=== PATIENT | male | born 1945 | race Caucasian/White ===

== ENCOUNTER 2019-07-17 09:54 | Outpatient (CLI) | payer OTHER, SELFPAY ==
--- NOTE | ~2019-07-17 | XR_ITS ---
XR chest 2V 07/17/2019 10:16 Indication: Cough with hemoptysis Procedure: PA and lateral views of the chest Comparison: 09/12/2017 Findings: Bilateral airspace disease predominantly affecting the mid and lower lungs. Cardiomegaly. N o pleural effusion or pneumothorax. Impression: 1: Bilateral airspace disease which may represent pneumonia or edema. 2: Cardiomegaly. Reviewed, dictated and finalized at location A. Impression: 1: Bilateral airspace disease which may represent pneumonia or edema. 2: Cardiomegaly.
== END 2019-07-17 09:55 | disposition home or self-care (01) ==
PROVIDERS: PCP Family Medicine Adolescent Medicine; Visit Provider Physician Assistant
DX: R05 Cough (principal); R06.2 Wheezing; I51.7 Cardiomegaly; R91.8 Other nonspecific abnormal finding of lung field
CPT/HCPCS: 71046

== ENCOUNTER 2019-08-20 16:03 | Outpatient (CLI) | payer OTHER, SELFPAY ==
--- NOTE | ~2019-08-20 | XR_ITS ---
XR chest 2V DATE: 08/20/2019 16:27 INDICATION: Cough, dyspnea TECHNIQUE: PA and lateral views COMPARISON: 07/17/2019 PA and lateral views FINDINGS: There is cardiac megaly. There is pulmonary vascular congestion and redistribution, promine nce of the minor fissure. There are Josie B-lines, mild airspace disease and/or atelectasis in the l ower lung zones primarily. Findings suggest congestive heart failure and pulmonary edema. No pleural effusion is evident. No pneumothorax. IMPRESSION: Cardiomegaly, mild congestive heart failure, bilateral lower lung infiltrate and/or atele ctasis Reviewed, dictated and finalized at location A. IMPRESSION: Cardiomegaly, mild congestive heart failure, bilateral lower lung i nfiltrate and/or atelectasis
== END 2019-08-20 16:04 | disposition home or self-care (01) ==
PROVIDERS: PCP Family Medicine Adolescent Medicine; Visit Provider Family Medicine Adolescent Medicine
DX: R05 Cough (principal); R06.02 Shortness of breath; I51.7 Cardiomegaly; I50.9 Heart failure, unspecified; R91.8 Other nonspecific abnormal finding of lung field
CPT/HCPCS: 71046

== ENCOUNTER 2019-10-10 15:48 | Outpatient (CLI) | payer OTHER, SELFPAY ==
[2019-10-10 16:12] LABS: Basophils Absolute Auto 0.1 K/mm3 (0.0-0.1); Basophils Percent Auto 0.7 % (0.2-1.2); Eosinophils Absolute Auto 0.1 K/mm3 (0-0.3); Eosinophils Percent Auto 2.1 % (0-4.4); Hematocrit 36.6 % (42.0-52.0); Immature Granulocyte Absolute 0.04 K/mm3 (0.00-0.031); Immature Granulocyte Percent A 0.6 % (0-0.5); Lymphocytes Absolute Auto 1.35 K/mm3 (0.9-3.2); Mean Corpuscular HGB Conc 32.8 g/dl (32-36); Mean Corpuscular Hemoglobin 30.2 pg (26-34); Mean Corpuscular Volume 92.2 fl (80-100); Mean Platelet Volume 9.7 fl (7.4-10.4); Monocytes Absolute Auto 0.6 K/mm3 (0.1-0.6); Monocytes Percent Auto 8.3 % (2.6-8.5); Neutrophils Absolute Auto 4.6 K/mm3 (1.3-6.7); Neutrophils Percent Auto 68.3 % (45.5-73.1); Platelet Count Result 256 k/mm3 (150-375); Red Blood Count 3.97 M/mm3 (4.6-6.20); Red Cell Distribution Width 14.5 % (11.5-14.5); White Blood Count 6.7 K/mm3 (4.5-10.0)
[2019-10-10 16:22] LABS: Prothrombin Time 12.6 Seconds (11.1-14.7)
[2019-10-10 16:23] LABS: Alanine Aminotransferase 14 U/L (4-50); Albumin Level 4.5 g/dL (3.5-5.1); Alkaline Phosphatase 52 U/L (38-126); Aspartate Amino Transferase 18 U/L (17-59); Bilirubin,Total 0.4 mg/dL (0.2-1.3); Blood Urea Nitrogen 38 mg/dL (9-20); Calcium 9.4 mg/dL (8.4-10.2); Carbon Dioxide 28 mmol/L (22-30); Chloride 100 mmol/L (98-107); Estimated Glomerular Filt Rate 35; Glucose 171 mg/dL (75-110); Potassium 4.6 mmol/L (3.4-5.0); Sodium 138 mmol/L (137-145)
== END 2019-10-10 15:49 | disposition home or self-care (01) ==
PROVIDERS: PCP Family Medicine Adolescent Medicine; Visit Provider Internal Medicine Cardiovascular Disease
DX: Z01.810 Encounter for preprocedural cardiovascular examination (principal)
CPT/HCPCS: 36415; 80053; 85025; 85610

== ENCOUNTER 2020-05-20 15:40 | Outpatient (CLI) | payer OTHER, SELFPAY ==
[2020-05-20 16:07] LABS: Basophils Absolute Auto 0.1 K/mm3 (0.0-0.1); Basophils Percent Auto 0.8 % (0.2-1.2); Eosinophils Absolute Auto 0.2 K/mm3 (0-0.3); Eosinophils Percent Auto 3.5 % (0-4.4); Hematocrit 35.4 % (42.0-52.0); Hemoglobin 11.5 g/dL (14.0-18.0); Immature Granulocyte Absolute 0.05 K/mm3 (0.00-0.031); Immature Granulocyte Percent A 0.8 % (0-0.5); Lymphocytes Absolute Auto 1.43 K/mm3 (0.9-3.2); Mean Corpuscular HGB Conc 32.5 g/dl (32-36); Mean Corpuscular Hemoglobin 32.4 pg (26-34); Mean Corpuscular Volume 99.7 fl (80-100); Mean Platelet Volume 9.1 fl (7.4-10.4); Monocytes Percent Auto 15.1 % (2.6-8.5); Neutrophils Absolute Auto 3.8 K/mm3 (1.3-6.7); Neutrophils Percent Auto 57.8 % (45.5-73.1); Platelet Count Result 248 k/mm3 (150-375); Red Blood Count 3.55 M/mm3 (4.6-6.20); Red Cell Distribution Width 12.7 % (11.5-14.5); White Blood Count 6.5 K/mm3 (4.5-10.0)
[2020-05-20 16:19] LABS: Alanine Aminotransferase 17 U/L (4-50); Albumin Level 4.2 g/dL (3.5-5.1); Alkaline Phosphatase 42 U/L (38-126); Anion Gap 8 mmol/L (8-16); Aspartate Amino Transferase 20 U/L (17-59); Bilirubin,Total 0.3 mg/dL (0.2-1.3); Blood Urea Nitrogen 44 mg/dL (9-20); Calcium 9.1 mg/dL (8.4-10.2); Carbon Dioxide 31 mmol/L (22-30); Chloride 102 mmol/L (98-107); Estimated Glomerular Filt Rate 43; Glucose 137 mg/dL (75-110); Potassium 4.4 mmol/L (3.4-5.0); Sodium 141 mmol/L (137-145)
== END 2020-05-20 15:41 | disposition home or self-care (01) ==
LOC: ANHLAB 15:43
PROVIDERS: PCP Family Medicine Adolescent Medicine; Visit Provider Internal Medicine Cardiovascular Disease
DX: I50.22 Chronic systolic (congestive) heart failure (principal)
CPT/HCPCS: 36415; 80053; 85025

== ENCOUNTER 2020-06-10 13:37 | Outpatient (CLI) | payer OTHER, SELFPAY ==
[2020-06-10 14:22] LABS: Alanine Aminotransferase 15 U/L (4-50); Albumin Level 4.2 g/dL (3.5-5.1); Alkaline Phosphatase 46 U/L (38-126); Anion Gap 9 mmol/L (8-16); Aspartate Amino Transferase 18 U/L (17-59); Bilirubin,Total 0.2 mg/dL (0.2-1.3); Blood Urea Nitrogen 45 mg/dL (9-20); Calcium 9.5 mg/dL (8.4-10.2); Carbon Dioxide 24 mmol/L (22-30); Chloride 106 mmol/L (98-107); Creatine Kinase 123 U/L (55-170); Estimated Glomerular Filt Rate 35; Glucose 169 mg/dL (75-110); Potassium 5.2 mmol/L (3.4-5.0); Sodium 139 mmol/L (137-145)
== END 2020-06-10 13:38 | disposition home or self-care (01) ==
PROVIDERS: PCP Family Medicine Adolescent Medicine; Visit Provider Internal Medicine Cardiovascular Disease
DX: R42 Dizziness and giddiness (principal)
CPT/HCPCS: 36415; 80053; 82550

== ENCOUNTER 2020-08-07 12:41 | Outpatient (CLI) | payer OTHER, SELFPAY ==
--- NOTE | ~2020-08-07 | CT_ITS ---
EXAMINATION:CT chest high resolution wo co DATE: 08/07/2020 14:32 INDICATION: Dyspnea. Interstitial lung disease. TECHNIQUE: Computed tomography (CT) of the chest was performed without intravenous contrast. Automate d exposure control and iterative reconstruction technique were employed. The dose-length product (DLP ) was 250.95 mGy-cm. COMPARISON: Chest 2 views 08/20/2019 FINDINGS: There is diffuse septal thickening in the lungs with a peripheral and lower lung predominan ce. There are associated groundglass opacities in the inferior lungs. There is mild bronchiectasis in all lobes. Calcified bilateral lung nodules and calcified hilar lymph nodes are consistent with old granulomatous disease. There is a 3 mm nodule in left lower lobe, likely benign. There is a 7 mm nodu le in lingula, probably benign. No pleural effusion. The heart size is normal. There are coronary art randolph calcifications. There are calcifications of aortic valve. No pericardial effusion. There is bilat eral gynecomastia. There are bridging endplate osteophytes at multiple levels in the spine, consisten t with diffuse idiopathic skeletal hyperostosis (DISH). IMPRESSION: 1. Chronic interstitial lung disease in a pattern of nonspecific interstitial pneumonia (NSIP). 2. 7 mm pulmonary nodule, probably benign. Noncontrast low-dose chest CT is recommended in 6 months. Reviewed, dictated and finalized at location A. IMPRESSION: 1. Chronic interstitial lung disease in a pattern of nonspecific interstitial p neumonia (NSIP). 2. 7 mm pulmonary nodule, probably benign. Noncontrast low-dose chest CT is rec ommended in 6 months.
--- NOTE | 2020-08-07 16:49 | WPDSIXMINUTE ---
Six Minute Walk Procedure Procedure Performed Pulmonary Stress Test (6 min walk) Six Minute Walk This is a 6 minutes walk test. The test was performed and interpreted in accordance with the 2014 ERS/ATS task force guidelines. Findings: The patient's resting room air oxygen saturation measured by pulse oximetry was 92% and her heart rate was 101 bpm. Patient ambulated for 259 meters and oxygen saturation remained 91 to 95%. Heart rate at the end of the study was 119 bpm. The patient did not qualify for supplemental oxygen at rest or with ambulation. There are no prior studies for comparison.
--- NOTE | 2020-08-07 16:52 | WPDPFTINT ---
PFT Procedure Performed PFT Procedure Performed Spirometry with Pre/Post Bronchodilator Plethysmography (Lung Vol) Diffusing Cap (DLCO) Flow Vol Loop PFT Interpretation This is a pulmonary function test with pre and post-bronchodilator spirometry, plethysmography and diffusing capacity. The test was performed and results interpreted in accordance with the 2019 and 2005 ATS/ERS Task Force guidelines respectively using the Global Lung Function Initiative-2012 reference equations. Patient demonstrated good effort and cooperation. Reproducibility criteria were met. The quality of the pre bronchodilator spirometry maneuver was Grade A and post bronchodilator spirometry maneuver was Grade A. Findings: Spirometry: There is decreased maximal expiratory airflow at all lung volumes with concave expiratory flow tracing. The contour the inspiratory flow tracing is normal. The pre bronchodilator FVC is 2.96 L, 76% predicted. The pre bronchodilator FEV1 is 1.53 L, 52% predicted. The FEV1: FVC ratio is 52%. The post bronchodilator FVC is 3.00 L, representing a 2% increase. The pre post bronchodilator FEV1 is 1.55 L, representing 1% increase. Plethysmography: The total lung capacity is 4.42 L, 66% predicted. The functional residual capacity is 2.75 L, 78% predicted. The residual volume is 1.32 L, 55% predicted. Diffusing capacity: The absolute diffusion capacity is 11.0, 45% predicted. The diffusing capacity corrected for alveolar volume is 3.05, 77% predicted. Impression: There is a combined obstructive and restrictive ventilatory abnormality. There are no guidelines to assign the severity of obstruction and restriction with a combined abnormality. In my opinion, given the moderately concave expiratory flow tracing and moderately decreased FEV1: FVC ratio and moderate restrictive abnormality I would state there is a moderate obstructive abnormality and a moderate restrictive abnormality resulting in a moderately severe decrease in the FEV1. There is no significant improvement after inhaling a single dose of albuterol. The absolute diffusing capacity is moderately decreased but normalizes when corrected for alveolar volume. There are no prior studies for comparison
== END 2020-08-07 12:42 | disposition home or self-care (01) ==
PROVIDERS: PCP Family Medicine Adolescent Medicine; Visit Provider Internal Medicine Critical Care Medicine
DX: R06.00 Dyspnea, unspecified (principal); J84.9 Interstitial pulmonary disease, unspecified; R91.1 Solitary pulmonary nodule; R94.2 Abnormal results of pulmonary function studies
CPT/HCPCS: 71250; 94060; 94618; 94726; 94729

== ENCOUNTER 2021-05-18 14:54 | Emergency (ER) | payer OTHER, SELFPAY ==
--- NOTE | ~2021-05-18 | CT_ITS ---
EXAMINATION: CT brain wo con DATE: 05/18/2021 15:57 INDICATION: Head injury post fall with epistaxis TECHNIQUE: Computed tomography (CT) of the head was performed without intravenous contrast. Sagittal and coronal reconstructions were performed. The mA was adjusted according to patient size. Iterative reconstruction technique was employed. The dose-length product was 605.33 mGy-cm. COMPARISON: None FINDINGS: No calvarial fracture. Age-indeterminate fracture with mild angulation along the anterior margin of t he right nasal bone. No acute intracranial hemorrhage, acute infarction or abnormal extra axial fluid collection. Symmetric prominence of the sulci consistent with mild age-appropriate diffuse cerebral volume loss. Ventricles are normal and symmetric. No mass/mass effect. Mild mucosal thickening the b ilateral ethmoid sinuses. The orbits, paranasal sinuses and mastoid air cells are normal. Intracrania l calcified cerebral atherosclerosis is noted. IMPRESSION: 1. Mildly angulated age indeterminate fracture at the anterior right nasal bone. 2. No acute intracranial process. Reviewed, dictated and finalized at location A. S PROJECT ENGINEER IMPRESSION: 1. Mildly angulated age indeterminate fracture at the anterior right nasal bone . 2. No acute intracranial process.
[2021-05-18 15:02] VITALS: BP 113/65; PULSE 98; RESP 16; TEMP 36.4; O2SAT 100
--- NOTE | 2021-05-18 15:46 | PC.NURSE ---
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 Gauze given and placed in bilateral nares and advised to leave in place
--- NOTE | 2021-05-18 16:15 | ED.GENADULT ---
HPI - General Adult General Chief complaint: Fall Stated complaint: fall Time Seen by Provider: 05/18/21 15:12 Source: patient and RN notes reviewed Mode of arrival: ambulatory Limitations: no limitations History of Present Illness HPI narrative: Patient is 75-year-old male who presents with epistaxis and nose pain after tripping over a curb falling forward striking the face patient denies loss of consciousness syncope notes pain to the nose only notes that the epistaxis has nearly resolved denies neck pain extremity injury or other complaints presents nondistressed does not anything for symptoms Related Data Home Medications Medication Instructions Recorded Confirmed albuterol sulfate 90 mcg/actuation 1 inh INHALATION Q4H 05/01/20 11/20/20 aerosol inhaler aspirin 81 mg tablet,delayed 81 mg PO DAILY 05/01/20 11/20/20 release baclofen 10 mg tablet 10 mg PO DAILY 05/01/20 11/20/20 cholecalciferol (vitamin D3) 50 50 mcg PO DAILY 05/01/20 11/20/20 mcg (2,000 unit) capsule finasteride 5 mg tablet 5 mg PO DAILY 05/01/20 11/20/20 fluticasone propionate 50 1 spray INTRANASAL DAILY 05/01/20 11/20/20 mcg/actuation nasal spray,suspension furosemide 40 mg tablet 40 mg PO QAM 05/01/20 11/20/20 glipizide 5 mg tablet 5 mg PO DAILY 05/01/20 11/20/20 ketoconazole 2 % shampoo 1 applic TOPICAL 2XW 05/01/20 11/20/20 magnesium oxide 250 mg PO DAILY 05/01/20 11/20/20 metformin 1,000 mg tablet 1,000 mg PO DAILY 05/01/20 11/20/20 rosuvastatin 40 mg tablet 40 mg PO DAILY 05/01/20 11/20/20 sacubitril 49 mg-valsartan 51 mg 1 tablet PO BID 05/01/20 11/20/20 tablet spironolactone 25 mg tablet 25 mg PO DAILY 05/01/20 11/20/20 tamsulosin 0.4 mg capsule 0.4 mg PO DAILY 05/01/20 11/20/20 carvedilol 6.25 mg tablet See Rx Instructions PO Q12H 08/20/20 11/20/20 Allergies Allergy/AdvReac Type Severity Reaction Status Date / Time lisinopril Allergy Unknown Rash Verified 11/20/20 13:40 pravastatin Allergy Unknown Rash Verified 11/20/20 13:40 Review of Systems Review of Systems: All systems reviewed & are unremarkable except as noted in HPI and below PMFSH Past Medical History Medical History Agent orange exposure Aortic stenosis Arthritis Asthma Benign hypertension with CKD (chronic kidney disease) stage III Benign prostatic hyperplasia with weak urinary stream CAD (coronary artery disease) Chronic systolic CHF (congestive heart failure) echo 10/2019 COPD (chronic obstructive pulmonary disease) moderate, 08/2020 Coronary atherosclerosis due to severely calcified coronary lesion Dyspnea Enlarged prostate GERD (gastroesophageal reflux disease) Glaucoma Long-term use of aspirin therapy Mitral valve regurgitation Obesity Pure hypercholesterolemia, unspecified Restrictive lung disease Secondary pulmonary arterial hypertension echo 10/2019 Sinusitis Sleep apnea 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 HEAD: Normocephalic, abrasion to the nasal bridge EYES: PERRLA and EOMI. ENT: Nares clear, no rhinorrhea. Resolving epistaxis. Mucous membranes moist. Oropharynx without tonsillar hypertrophy exudate or other lesions. Bilateral TMs pearly santos nonbulging NECK: Supple.
== END 2021-05-18 16:34 | disposition home or self-care (01) ==
PROVIDERS: Emergency Provider Emergency Medicine; PCP Family Medicine Adolescent Medicine
DX: S09.92XA Unspecified injury of nose, initial encounter (principal); R04.0 Epistaxis; I35.0 Nonrheumatic aortic (valve) stenosis; J44.9 Chronic obstructive pulmonary disease, unspecified; E11.22 Type 2 diabetes mellitus with diabetic chronic kidney disease; I13.0 Hypertensive heart and chronic kidney disease with heart failure and stage 1 through stage 4 chronic kidney disease, or unspecified chronic kidney disease; N18.30 Chronic kidney disease, stage 3 unspecified; I50.22 Chronic systolic (congestive) heart failure; E11.319 Type 2 diabetes mellitus with unspecified diabetic retinopathy without macular edema; I25.10 Atherosclerotic heart disease of native coronary artery without angina pectoris; N40.1 Benign prostatic hyperplasia with lower urinary tract symptoms; R39.12 Poor urinary stream; I34.0 Nonrheumatic mitral (valve) insufficiency; E66.9 Obesity, unspecified; J98.4 Other disorders of lung; H40.9 Unspecified glaucoma; G47.30 Sleep apnea, unspecified; Z79.82 Long term (current) use of aspirin; Z79.84 Long term (current) use of oral hypoglycemic drugs; Z95.5 Presence of coronary angioplasty implant and graft; Z96.652 Presence of left artificial knee joint; Z77.098 Contact with and (suspected) exposure to other hazardous, chiefly nonmedicinal, chemicals; W10.1XXA Fall (on)(from) sidewalk curb, initial encounter
CPT/HCPCS: 70450; 99284

== ENCOUNTER 2021-05-26 14:44 | Outpatient (CLI) | payer OTHER, SELFPAY ==
[2021-05-26 17:15] LABS: Rheumatoid Factor < 8.6 IU/ML (<12)
[2021-05-28 18:30] LABS: ANA Cascade Screen Negative (Negative)
[2021-05-28 22:28] LABS: ANCA Screen Negative (Negative)
[2021-05-29 22:08] LABS: Anti Cyclic Citrullinated Pept <16 Units (<20)
== END 2021-05-26 14:45 | disposition home or self-care (01) ==
LOC: ANHLAB 14:51
PROVIDERS: PCP Family Medicine Adolescent Medicine; Visit Provider Internal Medicine Pulmonary Disease
DX: J98.4 Other disorders of lung (principal)
CPT/HCPCS: 36415; 86036; 86038; 86200; 86331; 86430; 86606; 86609

== ENCOUNTER 2021-10-09 09:31 | Emergency (ER) | payer OTHER, SELFPAY ==
--- NOTE | ~2021-10-09 | CT_ITS ---
EXAMINATION: CT abdomen pelvis w con INDICATION: Diffuse abdominal pain and bloating TECHNIQUE: Computed tomographic images of the abdomen and pelvis were obtained after the administrati on of 100 cc of Omnipaque 300 intravenous contrast. The dose-length product (DLP) was 896.31 mGy-cm. Automated exposure control and iterative reconstruction technique were employed. COMPARISON: None available FINDINGS: There is moderate emphysema. The heart size is normal. The liver, spleen, pancreas, gallbla dder, and adrenal glands are normal. There is a large diverticulum of the third portion of the duoden um. There is a 3.3 cm cyst of the right kidney. The left kidney is unremarkable. There is calcified a therosclerosis of the aorta and many of the other arteries. No pathologically enlarged abdominal or p elvic lymph nodes are identified. There is no free intraperitoneal gas or evidence of bowel obstructi on. There is liquid stool throughout the colon to the level of the rectum. Colonic diverticulosis is present without evidence of diverticulitis. There is a greater than normal number of fluid-filled, no ndistended small bowel loops. There is mild lumbar spondylosis. IMPRESSION: 1. CT findings suggestive of enteritis and diarrhea. Reviewed, dictated and finalized at location B.
--- NOTE | 2021-10-09 09:43 | ED.ABDPAIN ---
HPI - Abdominal Pain General Chief Complaint: Nausea/Vomiting/Diarrhea Stated Complaint: diarrhea Time Seen by Provider: 10/09/21 09:34 History of Present Illness HPI narrative: 76-year-old male presents emergency room secondary diarrhea is been off approximately a week. He states his abdomen is extremely bloated. He went to a walk-in clinic 4 days ago and they wanted him come straight to the emergency room to have lab work and CT scan done but did not do that. He states that it seemed to be getting a little bit better with decrease in diarrhea. However restarted today and is already had 4 episodes of diarrhea today. Got some nausea but no associated vomiting. He states his abdomen seems to be much larger and very bloated. Had no chills or fevers. Denies any cough congestion chest pain. 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 He is also noted that his blood pressures been running low at home with a systolic pressure running in the 80s and 90s. However she had no associated tachycardia with that. Related Data Home Medications Medication Instructions Recorded Confirmed albuterol sulfate 90 mcg/actuation 1 inh inhalation Q4H 05/01/20 05/21/21 aerosol inhaler aspirin 81 mg tablet,delayed 81 mg PO DAILY 05/01/20 05/21/21 release baclofen 10 mg tablet 10 mg PO DAILY 05/01/20 05/21/21 cholecalciferol (vitamin D3) 50 50 mcg PO DAILY 05/01/20 05/21/21 mcg (2,000 unit) capsule finasteride 5 mg tablet 5 mg PO DAILY 05/01/20 05/21/21 fluticasone propionate 50 1 spray intranasal DAILY 05/01/20 05/21/21 mcg/actuation nasal spray,suspension (Allergy Relief (fluticasone)) furosemide 40 mg tablet 40 mg PO QAM 05/01/20 05/21/21 glipizide 5 mg tablet 5 mg PO DAILY 05/01/20 05/21/21 magnesium oxide 250 mg PO DAILY 05/01/20 05/21/21 metformin 1,000 mg tablet 1,000 mg PO DAILY 05/01/20 05/21/21 rosuvastatin 40 mg tablet (Crestor) 40 mg PO DAILY 05/01/20 05/21/21 sacubitril 49 mg-valsartan 51 mg 1 tablet PO BID 05/01/20 05/21/21 tablet (Entresto) spironolactone 25 mg tablet 25 mg PO DAILY 05/01/20 05/21/21 (Aldactone) tamsulosin 0.4 mg capsule (Flomax) 0.4 mg PO DAILY 05/01/20 05/21/21 carvedilol 6.25 mg tablet See Rx Instructions PO Q12H 08/20/20 05/21/21 Allergies Allergy/AdvReac Type Severity Reaction Status Date / Time lisinopril Allergy Unknown Rash Verified 10/09/21 10:06 pravastatin Allergy Unknown Rash Verified 10/09/21 10:06 Review of Systems Review of Systems: CONSTITUTIONAL: Denies fever, chills, or sweats. EYES: Denies visual changes, redness, or discharge. ENT: Denies rhinorrhea, congestion, sore throat, or otalgia. CARDIOVASCULAR: Denies chest pain, palpitations, or edema. RESPIRATORY: Denies cough or dyspnea. GASTROINTESTINAL: Abdomen is bloated. Got diarrhea. Some nausea but no vomiting no blood in the stool GENITOURINARY: Denies dysuria or hematuria. SKIN: Denies rash or itching. MUSCULOSKELETAL: Denies back pain, joint pain, or myalgia. NEUROLOGIC: Denies headache, numbness, or weakness. PSYCHIATRIC: Denies anxiety or depression. [facility] Past Medical History Medical History Agent orange exposure Aortic stenosis Arthritis Asthma Benign hypertension with CKD (chronic kidney disease) stage III Benign prostatic hyperplasia with weak urinary stream CAD (coronary artery disease) Chronic systolic CHF (congestive heart failure) echo 10/2019 COPD (chronic obstructive pulmonary disease) moderate, 08/2020 Coronary atherosclerosis due to severely calcified coronary lesion Dyspnea Enlarged prostate GERD (gastroesophageal reflux disease) Glaucoma Long-term use of aspirin therapy Mitral valve regurgitation Obesity Pure hypercholesterolemia, unspecified Restrictive lung disease Secondary pulmonary arterial hypertension echo 10/2019 Sinusitis 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
[2021-10-09 10:03] VITALS: BP 113/55; PULSE 82; RESP 16; O2SAT 97
[2021-10-09] MEDS: SODIUM CHLORIDE 0.9% IV 1,000 ML 999 ML IV CONT (10:07)
[2021-10-09 10:15] LABS: Basophils Percent Auto 0.3 % (0.2-1.2); Eosinophils Absolute Auto 0.4 K/mm3 (0-0.3); Eosinophils Percent Auto 5.5 % (0-4.4); Hematocrit 34.2 % (42.0-52.0); Hemoglobin 10.9 g/dL (14.0-18.0); Immature Granulocyte Absolute 0.03 K/mm3 (0.00-0.031); Immature Granulocyte Percent A 0.4 % (0-0.5); Lymphocytes Absolute Auto 1.23 K/mm3 (0.9-3.2); Lymphocytes Percent Auto 16.4 % (18.3-44.2); Mean Corpuscular HGB Conc 31.9 g/dl (32-36); Mean Corpuscular Hemoglobin 30.3 pg (26-34); Mean Platelet Volume 9.5 fl (7.4-10.4); Monocytes Absolute Auto 0.9 K/mm3 (0.1-0.6); Monocytes Percent Auto 11.5 % (2.6-8.5); Neutrophils Percent Auto 65.9 % (45.5-73.1); Platelet Count Result 219 k/mm3 (150-375); Red Cell Distribution Width 15.4 % (11.5-14.5); White Blood Count 7.5 K/mm3 (4.5-10.0)
[2021-10-09 10:27] LABS: Alanine Aminotransferase 11 U/L (6-50); Alkaline Phosphatase 43 U/L (38-126); Anion Gap 7 mmol/L (8-16); Aspartate Amino Transferase 13 U/L (17-59); Bilirubin,Total 0.3 mg/dL (0.2-1.3); Blood Urea Nitrogen 37 mg/dL (9-20); Calcium 8.8 mg/dL (8.4-10.2); Carbon Dioxide 20 mmol/L (22-30); Chloride 108 mmol/L (98-107); Estimated CRCL calculation 35 ml/min; Estimated Glomerular Filt Rate 42; Glucose 123 mg/dL (65-110); Potassium 4.2 mmol/L (3.4-5.0); Sodium 135 mmol/L (137-145)
--- NOTE | 2021-10-09 10:35 | PC.NURSE ---
Patient off unit to Radiology.
--- NOTE | 2021-10-09 11:16 | PC.NURSE ---
Patient report given to SLIM Gottlieb. All questions answered and care of patient transferred.
[2021-10-09 11:51] VITALS: BP 144/78; PULSE 86; RESP 18; TEMP 37; O2SAT 98
== END 2021-10-09 12:06 | disposition home or self-care (01) ==
PROVIDERS: Emergency Provider Emergency Medicine; PCP Family Medicine Adolescent Medicine
DX: K52.9 Noninfective gastroenteritis and colitis, unspecified (principal); E11.22 Type 2 diabetes mellitus with diabetic chronic kidney disease; I13.0 Hypertensive heart and chronic kidney disease with heart failure and stage 1 through stage 4 chronic kidney disease, or unspecified chronic kidney disease; N18.30 Chronic kidney disease, stage 3 unspecified; I50.22 Chronic systolic (congestive) heart failure; J44.9 Chronic obstructive pulmonary disease, unspecified; I35.0 Nonrheumatic aortic (valve) stenosis; I25.10 Atherosclerotic heart disease of native coronary artery without angina pectoris; I25.84 Coronary atherosclerosis due to calcified coronary lesion; I34.0 Nonrheumatic mitral (valve) insufficiency; E78.00 Pure hypercholesterolemia, unspecified; I27.21 Secondary pulmonary arterial hypertension; E11.3299 Type 2 diabetes mellitus with mild nonproliferative diabetic retinopathy without macular edema, unspecified eye; N40.1 Benign prostatic hyperplasia with lower urinary tract symptoms; E66.9 Obesity, unspecified; Z68.29 Body mass index [BMI] 29.0-29.9, adult; H40.9 Unspecified glaucoma; G47.30 Sleep apnea, unspecified; K21.9 Gastro-esophageal reflux disease without esophagitis; M19.90 Unspecified osteoarthritis, unspecified site; Z79.82 Long term (current) use of aspirin; Z79.84 Long term (current) use of oral hypoglycemic drugs
CPT/HCPCS: 36415; 74177; 80053; 85025; 96360; 99284; J7030; Q9967

== ENCOUNTER 2022-03-02 08:50 | Outpatient (CLI) | payer OTHER, SELFPAY ==
[2022-03-02 09:43] LABS: Alanine Aminotransferase 18 U/L (6-50); Albumin Level 4.5 g/dL (3.5-5.1); Alkaline Phosphatase 44 U/L (38-126); Anion Gap 10 mmol/L (8-16); Aspartate Amino Transferase 22 U/L (17-59); Bilirubin,Total 0.4 mg/dL (0.2-1.3); Blood Urea Nitrogen 23 mg/dL (9-20); Calcium 9.3 mg/dL (8.4-10.2); Carbon Dioxide 24 mmol/L (22-30); Chloride 104 mmol/L (98-107); Estimated Glomerular Filt Rate 54; Glucose 100 mg/dL (65-110); Potassium 4.7 mmol/L (3.4-5.0); Sodium 138 mmol/L (137-145)
== END 2022-03-02 08:51 | disposition home or self-care (01) ==
PROVIDERS: PCP Family Medicine Adolescent Medicine; Visit Provider Internal Medicine Cardiovascular Disease
DX: I25.5 Ischemic cardiomyopathy (principal)
CPT/HCPCS: 36415; 80053

== ENCOUNTER 2023-02-08 01:38 | Day surgery (SDC) | payer OTHER, SELFPAY ==
[2023-01-28 09:06] VITALS: BMI 28.5
--- NOTE | 2023-02-04 11:35 | SUR.PREOP ---
Patient called regarding upcoming procedure. Reviewed preop instructions, appointment times, and procedure prep.
[2023-02-08 09:24] VITALS: BP 108/53; PULSE 88; RESP 18; TEMP 36.2; O2SAT 96
[2023-02-08] MEDS: LACTATED RINGERS 1,000 ML 150 ML IV CONT (09:28)
[2023-02-08 09:39] LABS: Glucose Point of Care 140 mg/dl (65-105)
--- NOTE | 2023-02-08 10:26 | WPDANESEPPF ---
Anes - Initial Pre Proc Eval Procedure: Operation Date: 02/08/23 11:00 Proposed Procedures p Colonoscopy - Ruben Sommers MD Date/Time: 02/08/23 10:26 Surgeon: Ruben Sommers MD Pre Op Diagnosis: + cologuard Patient Data Age: 77 Gender: M Height: 1.73 m Weight: 82.9 kg Last Vital Signs Temp 97.2 F L 02/08/23 09:24 Pulse 88 02/08/23 09:24 Resp 18 02/08/23 09:24 BP 108/53 L 02/08/23 09:24 Pulse Ox 96 02/08/23 09:24 O2 Del Method Room Air 02/08/23 09:24 Allergies Allergy/AdvReac Type Severity Reaction Status Date / Time lisinopril Allergy Unknown Rash Verified 02/08/23 09:22 pravastatin Allergy Unknown Rash Verified 02/08/23 09:22 Home Medications Medication Instructions Recorded Confirmed Type aspirin 81 mg tablet,delayed 81 mg PO DAILY 05/01/20 02/03/23 History release cholecalciferol (vitamin D3) 50 50 mcg PO DAILY 05/01/20 02/03/23 History mcg (2,000 unit) capsule finasteride 5 mg tablet 5 mg PO DAILY 05/01/20 02/03/23 History fluticasone propionate 50 1 spray intranasal DAILY 05/01/20 02/03/23 History mcg/actuation nasal spray,suspension (Allergy Relief (fluticasone)) magnesium oxide 250 mg PO DAILY 05/01/20 02/03/23 History rosuvastatin 40 mg tablet (Crestor) 40 mg PO DAILY 05/01/20 02/03/23 History sacubitril 49 mg-valsartan 51 mg 1 tablet PO BID 05/01/20 02/03/23 History tablet (Entresto) tamsulosin 0.4 mg capsule (Flomax) 0.4 mg PO DAILY 05/01/20 02/03/23 History spironolactone 25 mg tablet 12.5 mg PO BID 11/02/21 02/03/23 History (Aldactone) albuterol sulfate 90 mcg/actuation 1 inh inhalation Q4H PRN SOB 11/16/22 02/03/23 History aerosol inhaler (Proventil HFA) budesonide-formoterol HFA 80 2 puff inhalation Q12H PRN SOB 11/16/22 02/03/23 History mcg-4.5 mcg/actuation aerosol inhaler carvedilol 3.125 mg tablet 3.125 mg PO Q12H #180 tabs 11/16/22 02/03/23 Rx empagliflozin 10 mg tablet 0.5 mg PO DAILY 11/16/22 02/03/23 History (Jardiance) metformin 1,000 mg tablet 500 mg PO BID 11/16/22 02/03/23 History semaglutide 1 mg/dose (2 mg/1.5 1 mg subcut WEEKLY 01/28/23 02/03/23 History mL) subcutaneous pen injector (Ozempic) Laboratory Tests 02/08/23 09:37 POC Capillary Glucose 140 H mg/dl (65-105) Patient hx anesthesia problems: none Family hx anesthesia problems: none Results Review: All pre-operative results and documents have been reviewed as part of the pre-operative evaluation. [facility] Past Medical History Medical History Agent orange exposure Aortic stenosis Arthritis Asthma Benign hypertension with CKD (chronic kidney disease) stage III Benign prostatic hyperplasia with weak urinary stream CAD (coronary artery disease) Chronic systolic CHF (congestive heart failure) echo 10/2019 COPD (chronic obstructive pulmonary disease) moderate, 08/2020 Coronary atherosclerosis due to severely calcified coronary lesion Dyspnea Enlarged prostate GERD (gastroesophageal reflux disease) Glaucoma Long-term use of aspirin therapy Mitral valve regurgitation Obesity Pure hypercholesterolemia, unspecified 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
--- NOTE | 2023-02-08 10:42 | PM.HPGS ---
History of Present Illness History of Present Illness Consent: Risks, benefits, and alternatives have been discussed and questions answered. Patient agrees to proceed with procedure. Chief complaint: + cologuard Narrative: Sung Chan is a 77 year old male here for positive cologuard, last colonoscopy about 20 years ago Review of Systems Constitutional: Constitutional: Denies headache(s) and Denies weakness Eyes: Eyes: Denies blurry vision ENT: Reports Normal hearing present, Denies headache(s) and Denies neck pain Cardiovascular: Cardiovascular: Denies chest pain and Denies dyspnea Respiratory: Respiratory: Denies dyspnea Gastrointestinal: Gastrointestinal: Reports no additional gastrointestinal complaints Genitourinary: Genitourinary: Denies dysuria Musculoskeletal: Musculoskeletal: Denies neck pain Integumentary/Breasts: Skin/Breast: Denies dry skin Neurologic: Reports Normal hearing present, Denies headache(s) and Denies weakness Psychiatric: Psychiatric: Denies anxiety Endocrine: Endocrine: Denies change in body appearance Hematologic/Lymphatic: Hematologic/Lymphatic: Denies easy bleeding Allergic/Immunologic: Allergic/Immunologic: Denies urticaria PMFSH Past Medical History Medical History (Updated 02/08/23 @ 10:43 by Ruben Sommers MD) Agent orange exposure Aortic stenosis Arthritis Asthma Benign hypertension with CKD (chronic kidney disease) stage III Benign prostatic hyperplasia with weak urinary stream CAD (coronary artery disease) Chronic systolic CHF (congestive heart failure) echo 10/2019 COPD (chronic obstructive pulmonary disease) moderate, 08/2020 Coronary atherosclerosis due to severely calcified coronary lesion Dyspnea Enlarged prostate GERD (gastroesophageal reflux disease) Glaucoma Long-term use of aspirin therapy Mitral valve regurgitation Obesity Positive colorectal cancer screening using Cologuard test Pure hypercholesterolemia, unspecified 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 (Reviewed 02/03/23 @ 13:08 by Georgia Mcqueen Smoking status: Never smoker Alcohol intake: never Substance use: never Lack of Transportation: No Lack of Food: Never True Current Housing: I Have Housing Concerned About Future Housing: No Difficulty Paying Gas/Electric Bills: No Difficulty Paying for Meds: No Currently Unemployed: No Education: High School Diploma/GED Difficulty w/ Childcare or Family Care: No Living arrangements: with family Occupation/Education: occupation Gender identity (if verbalized by the patient): Male Sexual Orientation (if Verbalized by the Patient): Straight or Heterosexual Spiritual care concerns: No Agree to blood products: Yes Meds Home Medications and Allergies Home Medications Medication Instructions Recorded Confirmed Type aspirin 81 mg tablet,delayed 81 mg PO DAILY 05/01/20 02/03/23 History release cholecalciferol (vitamin D3) 50 50 mcg PO DAILY 05/01/20 02/03/23 History mcg (2,000 unit) capsule finasteride 5 mg tablet 5 mg PO DAILY 05/01/20 02/03/23 History fluticasone propionate 50 1 spray intranasal DAILY 05/01/20 02/03/23 History mcg/actuation nasal spray,suspension (Allergy Relief (fluticasone)) magnesium oxide 250 mg PO
[2023-02-08 11:05] VITALS: BP 98/56; PULSE 75; RESP 20; O2SAT 100
[2023-02-08 11:15] VITALS: BP 102/57; PULSE 75; RESP 19; O2SAT 100
[2023-02-08 11:25] VITALS: BP 105/57; PULSE 73; RESP 19; O2SAT 98
== END 2023-02-08 11:33 | disposition home or self-care (01) ==
PROVIDERS: PCP Family Medicine Adolescent Medicine; Visit Provider Internal Medicine Gastroenterology
PROC: 0DJD8ZZ Inspection of Lower Intestinal Tract, Via Natural or Artificial Opening Endoscopic (ICD-10-PCS; CPT 45378; principal; 2023-02-08 11:00)
DX: D12.0 Benign neoplasm of cecum (principal); R19.5 Other fecal abnormalities; K57.30 Diverticulosis of large intestine without perforation or abscess without bleeding; K64.8 Other hemorrhoids; I13.0 Hypertensive heart and chronic kidney disease with heart failure and stage 1 through stage 4 chronic kidney disease, or unspecified chronic kidney disease; I50.22 Chronic systolic (congestive) heart failure; E11.22 Type 2 diabetes mellitus with diabetic chronic kidney disease; E11.3299 Type 2 diabetes mellitus with mild nonproliferative diabetic retinopathy without macular edema, unspecified eye; N18.32 Chronic kidney disease, stage 3b; I25.10 Atherosclerotic heart disease of native coronary artery without angina pectoris; K21.9 Gastro-esophageal reflux disease without esophagitis; E78.00 Pure hypercholesterolemia, unspecified; H40.9 Unspecified glaucoma; G47.30 Sleep apnea, unspecified; Z79.82 Long term (current) use of aspirin; Z79.51 Long term (current) use of inhaled steroids; Z79.85 Long-term (current) use of injectable non-insulin antidiabetic drugs; Z79.84 Long term (current) use of oral hypoglycemic drugs; Z95.5 Presence of coronary angioplasty implant and graft
CPT/HCPCS: 45385; 82948; 88305; J2371; J2704; J7120

== ENCOUNTER → 2025-02-20 08:23 | Outpatient (CLI) | payer MEDICARE, SELFPAY ==
--- NOTE | ~2025-02-20 | XR_ITS ---
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 Findings: There are remote fractures of the distal radius and ulnar styloid process. No acute fracture is identified. Severe degenerative changes of the first metacarpal carpal joint with severe degenerative changes of the carpal joints with collapse of the scaphoid and lunate noted. Soft tissue swelling is noted. Impression: Severe degenerative changes with osteonecrosis. CT or MRI is recommended Reviewed, dictated and finalized at location P. NER OPERATOR Impression: Severe degenerative changes with osteonecrosis. CT or MRI is recommended
== END ==
LOC: EXPCRAD 08:28
PROVIDERS: PCP Family Medicine; Visit Provider Family Medicine
DX: M19.032 Primary osteoarthritis, left wrist (principal); M87.9 Osteonecrosis, unspecified
CPT/HCPCS: 73110

== ENCOUNTER 2025-02-26 10:44 | Outpatient (CLI) | payer MEDICARE, SELFPAY ==
--- NOTE | ~2025-02-26 | MR_ITS ---
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 Sequences performed include axial PD-weighted FSE and PD-weighted FS FSE, coronal PD-weighted FS FSE and T1-weighted SE, and sagittal PD-weighted FS FSE and PD-weighted FSE. COMPARISON: 02/20/2025 FINDINGS: 5 mm ulnar minus variance. Old healed fracture deformity of the distal radius with likely secondary step-off along the articular cortex at the junction of the lunate and scaphoid fossae. 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 There is associated disruption of the carpal arcs and and increased volar rotation of the scaphoid. Just there is additional polyarticular osteoarthritis, severe at the first carpometacarpal joint, moderate severity at the triscaphe and distal radioulnar joints and mild at the remaining carpal metacarpal joints. There is a large ossicle at the volar/ulnar aspect of the distal ulna with absent ulnar styloid process which could represent either a ulnar styloid avulsion fracture or degenerative remodeling of the distal ulna and adjacent heterotopic ossification. There is loss of a significant portion of the fiber cartilaginous disc of the triangular fibrocartilage complex consistent with likely chronic tear and secondary degeneration. There is complete tear of the dorsal radioulnar ligament and partial tear of the dorsal radioulnar ligament. Extensor tendons of the wrist are normal. No tenosynovitis. There is prominent fluid surrounding normal appearing flexor tendons extending distally from the level of the carpal tunnel consistent with tenosynovitis. Remaining flexor tendons of the wrist are also normal. The median nerve is unremarkable. Guyon's canal including the ulnar nerve and artery are normal. IMPRESSION: 1. 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 2. Complex tear of the triangular fibrocartilage complex with loss of the majority the tissue of the torn fibrocartilaginous disc as well as tears of the volar radioulnar ligament and partial tear of the dorsal radioulnar ligament. 3. 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 4. Flexor digitorum tenosynovitis with prominent fluid surrounding the normal tendons distal to the level of the carpal tunnel. Reviewed, dictated and finalized at location A. EMENT MECHANIC IMPRESSION: 1. 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 2. Complex tear of the triangular fibrocartilage complex with loss of the major ity the tissue of the torn fibrocartilaginous disc as well as tears of the vola r radioulnar ligament and partial tear of the dorsal radioulnar ligament. 3. 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 4. Flexor digitorum tenosynovitis with prominent fluid surrounding the normal t endons distal to the level of the carpal tunnel.
== END 2025-02-26 10:45 | disposition home or self-care (01) ==
PROVIDERS: PCP Family Medicine; Visit Provider Family Medicine
DX: M87.2 Osteonecrosis due to previous trauma (principal); M19.032 Primary osteoarthritis, left wrist; M18.12 Unilateral primary osteoarthritis of first carpometacarpal joint, left hand; S63.592A Other specified sprain of left wrist, initial encounter; M65.842 Other synovitis and tenosynovitis, left hand; X58.XXXA Exposure to other specified factors, initial encounter
CPT/HCPCS: 73221